=== PATIENT | female | born 1970 | race Caucasian/White ===

== ENCOUNTER 2016-11-08 01:02 | Inpatient (IN) | payer MEDICAID, OTHER ==
[2016-11-08] VITALS (9 sets, daily range): BP systolic 97–144; RESP 16–18; TEMP 97.4–98.2; Ht 165.1 cm; Wt 71.0 kg
[~2016-11-08] VITALS: Ht 165.1 cm; Wt 71.0 kg
[2016-11-08] MEDS ORDERED: OPTIRAY 350 100 ML VIAL HMH IV ONE (01:03)
[2016-11-08] MEDS ORDERED: ASPIRIN 81 MG CHEW TAB ONE (01:19)
[2016-11-08] MEDS ORDERED: KETOROLAC 30 MG/ML VIAL ONE (01:55)
[2016-11-08] MEDS ORDERED: SODIUM CHLORIDE 0.9% 1,000 ML ONE ×2 (02:30→03:39)
[2016-11-08] MEDS ORDERED: ONDANSETRON 4 MG VIAL ONE (03:38)
[2016-11-08] MEDS ORDERED: ENOXAPARIN 80 MG/0.8 ML SYR SUBQ ONE (03:38)
[2016-11-08] MEDS ORDERED: MORPHINE 4 MG/ML SYR ONE (03:39)
[2016-11-08] MEDS ORDERED: MAG HYDROX 30 ML UDC PO PRN (03:55)
[2016-11-08] MEDS ORDERED: SALINE FLUSH 10 ML FLUSH PRN (03:55)
[2016-11-08] MEDS ORDERED: BISACODYL 10 MG SUPP RECTAL PRN (03:55)
[2016-11-08] MEDS ORDERED: BISACODYL EC 5 MG TAB PO PRN (03:55)
[2016-11-08] MEDS ORDERED: ACETAMINOPHEN 325 MG TAB PO PRN (03:55)
[2016-11-08] MEDS ORDERED: ALU/MAG/SIM 30 ML UDC PO PRN (03:55)
[2016-11-08] MEDS: SODIUM CHLORIDE 0.9% FLUSH BAG 500 ML IV SCH (06:00)
[2016-11-08] MEDS: SODIUM CHLORIDE 0.9% 1,000 ML IV SCH (06:19)
[2016-11-08] MEDS: SALINE FLUSH 10 ML FLUSH SCH ×2 (08:00→21:30)
[2016-11-08] MEDS ORDERED: MISSING DOSE XX ONE (09:05)
[2016-11-08] MEDS: MORPHINE 2 MG/ML SYR IV PRN ×3 (09:07→21:31)
[2016-11-08] MEDS: FAMOTIDINE 20 MG INJ IV SCH ×2 (09:50→21:30)
[2016-11-08] MEDS: NEB-ATROVENT INH SCH ×4 (10:20→22:41)
[2016-11-08] MEDS: NEB-ALBUTEROL 2.5 MG/3 ML INH SCH ×4 (10:20→22:41)
[2016-11-08] MEDS ORDERED: LOPERAMIDE 2 MG CAPSULE PO SCH (12:50)
[2016-11-08] MEDS ORDERED: PROMETHAZINE 25 MG TAB PO PRN (12:50)
[2016-11-08] MEDS: cloNIDine 0.1 MG TAB PO SCH ×3 (12:50→21:30)
[2016-11-08] MEDS: ONDANSETRON 4 MG TAB PO SCH ×3 (12:50→21:00)
[2016-11-08] MEDS ORDERED: [UNRECOGNIZED DRUG - REMARK] XX SCH (12:58)
[2016-11-08] MEDS ORDERED: LOPERAMIDE 2 MG CAPSULE PO PRN (13:50)
[2016-11-08] MEDS: QUEtiapine 25 MG TAB PO SCH ×2 (13:56→21:30)
[2016-11-08] MEDS: FLUOXETINE 20 MG CAP PO SCH (13:56)
[2016-11-08] MEDS: BUPROPION SR 150 MG TAB PO SCH ×2 (13:56→21:29)
[2016-11-08] MEDS: METOPROLOL TART 25 MG TAB PO SCH (13:58)
[2016-11-08] MEDS ORDERED: ENOXAPARIN 80 MG/0.8 ML SYR SUBQ SCH (16:00)
[2016-11-08] MEDS: BUSPIRONE HCL 15 MG TAB PO SCH (21:29)
[2016-11-09] MEDS: NEB-ATROVENT INH SCH ×6 (02:45→23:15)
[2016-11-09] MEDS: NEB-ALBUTEROL 2.5 MG/3 ML INH SCH ×6 (02:45→23:15)
[2016-11-09 04:23] VITALS: BP_SYST 96; RESP 16; TEMP 98.2
[2016-11-09] MEDS: SODIUM CHLORIDE 0.9% FLUSH BAG 500 ML IV SCH ×2 (05:59→23:38)
[2016-11-09] MEDS: ONDANSETRON 4 MG TAB PO SCH ×3 (06:15→21:40)
[2016-11-09] MEDS: MORPHINE 2 MG/ML SYR IV PRN ×4 (06:17→21:40)
[2016-11-09 07:11] VITALS: BP_SYST 116; RESP 16; TEMP 98.7
[2016-11-09] MEDS: METOPROLOL TART 25 MG TAB PO SCH (08:09)
[2016-11-09] MEDS: BUSPIRONE HCL 15 MG TAB PO SCH ×2 (08:53→21:40)
[2016-11-09] MEDS: BUPROPION SR 150 MG TAB PO SCH ×2 (08:53→21:40)
[2016-11-09] MEDS: FAMOTIDINE 20 MG INJ IV SCH ×2 (08:53→21:40)
[2016-11-09] MEDS: SALINE FLUSH 10 ML FLUSH SCH ×2 (08:53→21:40)
[2016-11-09] MEDS: QUEtiapine 25 MG TAB PO SCH ×2 (08:56→21:41)
[2016-11-09] MEDS: FLUOXETINE 20 MG CAP PO SCH (08:56)
[2016-11-09] MEDS: cloNIDine 0.1 MG TAB PO SCH ×3 (08:57→21:00)
[2016-11-09] MEDS: SODIUM CHLORIDE 0.9% 1,000 ML IV SCH ×2 (10:14→23:25)
[2016-11-09 10:49] VITALS: BP_SYST 134; RESP 16; TEMP 98.1
[2016-11-09] MEDS ORDERED: TRAMADOL 50 MG TAB PO PRN (11:05)
[2016-11-09 14:55] VITALS: BP_SYST 128; RESP 16; TEMP 98.1
[2016-11-09] MEDS: Rivaroxaban 15 MG TAB PO SCH (17:35)
[2016-11-09 19:33] VITALS: BP_SYST 89; RESP 16; TEMP 97.8
[2016-11-09 23:23] VITALS: BP_SYST 79; RESP 14; TEMP 97.6
[2016-11-10] MEDS: NEB-ATROVENT INH SCH ×4 (03:14→14:42)
[2016-11-10] MEDS: NEB-ALBUTEROL 2.5 MG/3 ML INH SCH ×4 (03:14→14:42)
[2016-11-10 03:56] VITALS: BP_SYST 111; RESP 14; TEMP 97.6
[2016-11-10 07:35] VITALS: BP_SYST 98; RESP 16; TEMP 97.7
[2016-11-10] MEDS: MORPHINE 2 MG/ML SYR IV PRN (07:47)
[2016-11-10] MEDS: FAMOTIDINE 20 MG INJ IV SCH (07:57)
[2016-11-10] MEDS: BUSPIRONE HCL 15 MG TAB PO SCH (07:58)
[2016-11-10] MEDS: QUEtiapine 25 MG TAB PO SCH (07:58)
[2016-11-10] MEDS: Rivaroxaban 15 MG TAB PO SCH (07:58)
[2016-11-10] MEDS: SALINE FLUSH 10 ML FLUSH SCH (07:58)
[2016-11-10] MEDS: METOPROLOL TART 25 MG TAB PO SCH (07:58)
[2016-11-10] MEDS: FLUOXETINE 20 MG CAP PO SCH (07:58)
[2016-11-10] MEDS: BUPROPION SR 150 MG TAB PO SCH (07:58)
[2016-11-10] MEDS: cloNIDine 0.1 MG TAB PO SCH (07:59)
[2016-11-10] MEDS: ONDANSETRON 4 MG TAB PO SCH (07:59)
[2016-11-10 14:23] VITALS: BP_SYST 98; RESP 16; TEMP 97.7
== END 2016-11-10 14:40 | disposition home or self-care (01) | DRG 542 ==
LOC: ENRESERVTM → ENRESERVDT → ER 01:02 → ENPENDDIS 04:48 → EMR 04:48 → 5THW 06:14
PROVIDERS: ADMIT Internal Medicine; ATTEND Internal Medicine
DX: C79.51 Secondary malignant neoplasm of bone (principal); I26.99 Other pulmonary embolism without acute cor pulmonale; C50.919 Malignant neoplasm of unspecified site of unspecified female breast; F41.9 Anxiety disorder, unspecified; F15.90 Other stimulant use, unspecified, uncomplicated; F17.200 Nicotine dependence, unspecified, uncomplicated; F10.21 Alcohol dependence, in remission; J44.9 Chronic obstructive pulmonary disease, unspecified; I10 Essential (primary) hypertension
CPT/HCPCS: 36415; 71010; 71260; 78306; 80048; 80053; 82550; 82553; 83735; 84484; 85025; 85379; 85610; 85730; 93005; 94640; 94799; 96361; 96372; 96374; 96375; 99223; 99232; 99239